=== PATIENT | male | born 1965 | race Caucasian/White ===

== ENCOUNTER 2021-06-17 11:47 | Emergency (ER) | payer MEDICAID ==
[~2021-06-17] VITALS: Ht 167.6 cm; Wt 81.6 kg
[2021-06-17] MEDS ORDERED: CEPHALEXIN500 M1 PO (16:08)
[2021-06-17] MEDS ORDERED: HYDROCODONE-AC1 EAC1 PO (16:36)
[2021-06-19] MEDS ORDERED: HYDROCODONE-AC1 EAC1 PO (08:52)
== END 2021-06-17 16:13 | disposition home or self-care (01) ==
LOC: ED 11:47
DX: S61.306A Unspecified open wound of right little finger with damage to nail, initial encounter (principal); W55.12XA Struck by horse, initial encounter; Y93.89 Activity, other specified; Y92.89 Other specified places as the place of occurrence of the external cause; Y99.8 Other external cause status

== ENCOUNTER → 2021-06-19 | Day surgery (SDC) | payer MEDICAID ==
[~2021-06-19] VITALS: Ht 167.6 cm; Wt 83.9 kg
[~2021-06-19] MED LIST: CEPHALEXIN500 M1 PO; HYDROCODONE-AC1 EAC1 PO
[2021-06-19 07:21] LABS: BUN 13 mg/dl (7-24); CHLORIDE 109 mmol/L (98-107); CREATININE 0.86 mg/dL (0.70-1.30); POTASSIUM 4.1 mmol/L (3.5-5.1); SODIUM 139 mmol/L (136-145)
[2021-06-19 07:24] VITALS: BP 114/74
[2021-06-19 08:40] VITALS: BP 99/57
[2021-06-19 08:55] VITALS: BP 101/69
[2021-06-19 09:10] VITALS: BP 114/79
== END | disposition home or self-care (01) ==
LOC: SDC 00:28
PROVIDERS: ATTEND Orthopaedic Surgery
DX: S68.626A Partial traumatic transphalangeal amputation of right little finger, initial encounter (principal); X58.XXXA Exposure to other specified factors, initial encounter; Y93.89 Activity, other specified; Y92.89 Other specified places as the place of occurrence of the external cause; Y99.8 Other external cause status